=== PATIENT | female | born 1970 | race African-American/Black ===

== ENCOUNTER 2016-06-23 05:11 | Day surgery (SDC) | payer OTHER ==
[2016-06-17 11:01] VITALS: BMI 27.8
[2016-06-23] MEDS ORDERED: VASOPRESSIN 20 UNITS/ML VIAL IV ONE (10:03)
[2016-06-23] MEDS ORDERED: PROPOFOL 20 ML ONE (10:53)
[2016-06-23] MEDS ORDERED: ROCURONIUM BROMIDE 50 MG/5 ML VIAL ONE (10:53)
[2016-06-23] MEDS ORDERED: MIDAZOLAM HCL 2 MG/2 ML SINGLE DOSE VIAL ONE ×2 (10:53)
[2016-06-23] MEDS ORDERED: ceFAZolin SODIUM 1 GM VIAL IVPB ONE (11:10)
[2016-06-23] MEDS ORDERED: METRONIDAZOLE 500 MG PREMIXED 500 MG/100 ML MG IVPB ONE (11:10)
[2016-06-23] MEDS ORDERED: ceFAZolin SODIUM 1 GM VIAL ONE (11:14)
[2016-06-23] MEDS ORDERED: METRONIDAZOLE 500 MG PREMIXED 100 ML IVPB ONE (11:15)
[2016-06-23] MEDS ORDERED: DEXAMETHASONE SOD PHOSPHATE 4 MG/1 ML VIAL ONE (11:26)
[2016-06-23] MEDS ORDERED: KETOROLAC TROMETHAMINE 30 MG/1 ML VIAL ONE (13:38)
[2016-06-23] MEDS ORDERED: ONDANSETRON 4 MG/2 ML VIAL IVPUSH PRN (14:16)
[2016-06-23] MEDS ORDERED: oxyCODONE HCL 5 MG TABLET PO PRN ×2 (14:16→14:26)
--- NOTE | 2016-06-23 14:19 | HP ---
History & Physical Update - History History: No Change - Physical Physical: No Change - Assessment Assessment: No Change - Plan Plan: No Change
--- NOTE | 2016-06-23 14:25 | OP ---
Operative Note - Note: Operative Date: 06/23/16 Pre-Operative Diagnosis: 46 yo P0 with Chronic pelvic pain, multifibroid uterus , s/p Uterine artery embolisation Operation: Laparascopicaly assysted vaginal hysterectomy, bilateral salpingectomy Findings: 12 week size multifibroid uterus, likely adenomyosis, normal bilateral tubes and ovaries, normal abdominal anatomy, bilateral ureters visualized Post-Operative Diagnosis: Other Surgeon: Salina Siddiqui Neighborhood Coordinator: Fox Pascual Anesthesiologist/CAN COVERER: Shaye Walters Anesthesia: General Specimens Removed: Uterus with cervix, bilateral tubes Estimated Blood Loss (mls): 50 Drains, Volume Out (mls): 200 Fluid Volume Replaced (mls): 1,200 Operative Report Dictated: Yes
[2016-06-23] MEDS ORDERED: IBUPROFEN 600 MG TABLET (FP) PO PRN (14:26)
[2016-06-23] MEDS ORDERED: ONDANSETRON 4 MG/2 ML VIAL IVPB PRN (14:26)
[2016-06-23] MEDS ORDERED: IBUPROFEN 800 MG/8 ML IJ IVPB PRN (14:26)
[2016-06-23] MEDS ORDERED: LACTATED RINGERS SOLUTION 1,000 ML IV SCH (14:30)
[2016-06-23] MEDS ORDERED: ELECTROLYTE-148 SOLN 1,000 ML IV SCH (14:30)
[2016-06-23 17:15] VITALS: TEMP 98.5
[2016-06-23] MEDS ORDERED: oxyCODONE HCL 5 MG TABLET ONE (17:50)
[2016-06-23 19:05] VITALS: BP 125/69; PULSE 84
--- NOTE | 2016-06-24 00:54 | OP ---
DATE OF OPERATION: 06/23/2016 PREOPERATIVE DIAGNOSIS: A 46-year-old para 0 with chronic pelvic pain, multi-fibroid uterus, status post uterine artery embolization. OPERATION: Laparoscopically assisted vaginal hysterectomy, bilateral salpingectomy. FINDINGS: A 12-week size multi-fibroid uterus likely adenomyosis, normal bilateral tubes and ovaries, normal abdominal anatomy, bilateral ureters visualized. POSTOPERATIVE DIAGNOSIS: A 12-week size multi-fibroid uterus likely adenomyosis, normal bilateral tubes and ovaries, normal abdominal anatomy, bilateral ureters visualized. SURGEON: Salina Siddiqui MD MONORAIL HOOKER: Fox Pascual MD ANESTHESIOLOGIST: Shaye Walters MD ANESTHESIA: General endotracheal intubation. SPECIMENS REMOVED: Uterus with cervix and bilateral tubes. ESTIMATED BLOOD LOSS: 50 mL. URINE OUTPUT: 200 mL. FLUID VOLUME REPLACED: 1200 mL. DESCRIPTION OF OPERATIVE PROCEDURE: The patient was explained the risks, benefits, and alternatives of the procedure and signed an informed consent with witness present. The patient was taken to the operating room where the patient's medical record number was confirmed during preoperative timeout. After establishment of adequate anesthesia, sequential compression devices were placed and antibiotic prophylaxis was given. Patient was placed in the dorsal lithotomy position using Radu stirrups. Her arms were protected with foam and tucked into the crate. Patient was prepped and draped in the usual sterile fashion. Pelvic examination conducted and revealed above findings. Multi-fibroid uterus was poor descensus. The decision was made to proceed with laparoscopically assisted vaginal hysterectomy. The umbilicus was incised with 15-blade. The 5-mm Optiview trocar with camera was placed through the umbilicus and good visualization of the underlying tissues. The proper entry was confirmed by low intraabdominal pressure. The abdomen was subsequently insufflated to 16 mmHg and all intraabdominal contents were visualized well. Subsequently, 2 additional trocars were placed; 5-mm trocar into the right lower quadrant as well as a 5-mm trocar into the left lower quadrant. Also, the uterine manipulator was placed through the cervical os. Hulka was used to allow for uterine manipulation. The 5-mm 0-degree scope was utilized to observe all intraabdominal contents. The uterus was found to be multi-fibroid, but allowing good access to all vital blood vessels. The round ligament on the right side was cauterized with 5-mm LigaSure and the bladder flap was created from right round ligament onto the left round ligament and left round ligament was severed using LigaSure device in a similar fashion. Subsequently, attention was paid to the left adnexa and uteroovarian ligament was severed with excellent hemostasis using the LigaSure device. Subsequently, the left fallopian tube was excised along the mesosalpinx and severed off of the infundibulopelvic using the LigaSure device. The uterine artery on the left side was skeletonized and severed, cauterized via the LigaSure device with excellent hemostasis. Subsequently, the right uteroovarian ligament was cauterized and dissected off of the uterine fundus using LigaSure device. Right fallopian tube was dissected off the infundibulopelvic ligament and subsequently off of the mesosalpinx. Both tubes were positioned into the anterior cul-de-sac. Both ovaries bilaterally were found to be healthy and vital after the dissection of the bilateral fallopian tubes. Subsequently the right uterine artery was skeletonized and dissected using the LigaSure device. One more downward dissection was placed with the LigaSure device bilaterally to dissect the cardinal ligament further and also uterosacral ligaments were dissected using the LigaSure device. Subsequently, attention was brought to the perineum. The abdominal gas was released. Abdomen was covered with sterile towels. Surgery proceeded vaginally. Two sweetheart tenaculums were placed at 3 o'clock and 9 o'clock on the cervical os with good visualization of bowel and bladder. Then, 10 mL of dilution solution of vasopressin was injected circumferentially into the cervicovaginal junction. The cervicovaginal junction subsequently was incised with Bovie cautery and sharp dissection was used to enter anterior and posterior cul-de-sacs with good visualization of neighboring bladder and bowel and good protection and retraction of such. Subsequently, the impact LigaSure device was used to dissect off the cardinal ligaments bilaterally and uterus was exteriorized and delivered and subsequently sent to pathology. The vaginal cuff was sutured from 12 o'clock to 6 o'clock with [id number]-[id number] 0 Vicryl sutures. Multiple sutures were placed. Excellent hemostasis was achieved. The sponge stick was placed into the vagina, which was found to have appropriate length. Subsequently, the gloves were changed and attention was brought again to the abdomen. The abdominal contents were visualized again. The abdomen was insufflated with CO2 gas to 16 mmHg. The excellent hemostasis was found intra-abdominally. Abdomen was irrigated with normal saline. The graspers were used to remove the bilateral tubes through the left lateral port twice and bilateral tubes were sent to pathology. After ensuring excellent hemostasis after irrigation, the CO2 gas was allowed to escape the abdomen through the ports. All 3 ports were removed under direct visualization. All of the ports were only 5 mm and only skin was repaired with 4-0 Monocryl. Bandages were placed on each port. All instrument and sponge counts were correct x2. Patient was repositioned into the supine position. All instruments were removed. The patient was extubated and brought to the recovery room in stable condition. Claus [id number]
--- NOTE | 2016-06-25 17:37 | PATH ---
Surgical Pathology Report Patient Name: ALEJANDRO PEREZ [facility]. Rec. #: [id number] /Age/Gender: 1970 (Age: 46) / F Account: [id number] Location: [facility] SURGICAL Taken: 06/23/2016 Received: 06/24/2016 Reported: 06/25/2016 Physicians: Salina Siddiqui M.D. Specimen(s) Received UTERUS, CERVIX, WITH OR W/O TUBES AND OVARIES, (WITH FIBROIDS & BILATERAL TUBES Clinical History Leiomyoma of uterus Final Diagnosis UTERUS, CERVIX, FIBROIDS BILATERAL FALLOPIAN TUBES, VAGINAL HYSTERECTOMY: CERVIX: MILD CHRONIC CERVICITIS. ENDOMETRIUM: PREDOMINANTLY SECRETORY. MYOMETRIUM: FOCAL ADENOMYOSIS, LEIOMYOMATA WITH DEGENERATIVE CHANGES (LARGEST 3.7 CM); BLOOD VESSELS WITH AMORPHOUS MATERIAL SUGGESTIVE OF PRIOR UTERINE ARTERY EMBOLIZATION. UTERINE SEROSA: WITH NO SIGNIFICANT PATHOLOGIC CHANGES. FALLOPIAN TUBES: UNILATERAL PARATUBAL CYST. Electronically Signed Ricky Vernon M.D. Gross Description Received in formalin, labeled "uterus, cervix, fibroids and bilateral fallopian tubes" is a 171 g uterus with an attached cervix and no attached adnexa. The bilateral, undesignated fallopian tubes are separately received within the same container. The specimen measures 10.8 cm from superior to inferior, 6.5 cm from left to right and 5.5 cm from anterior to posterior. The serosa is kern-jim with multiple bulging subserosal nodules. The cervix measures 3 cm in length and averages 2.2 cm in diameter. The ectocervix is kern, smooth and glistening. The endocervix is unremarkable. The endometrial cavity is distorted by a large bulging intramural nodule. The cavity measures 6 cm in length and 3.3 cm from cornu to cornu. The endometrium is hyperemic and measures up to 0.3 cm in thickness. The myometrium displays numerous intramural, calcified and focally softened nodules measuring up to 3.7 cm in greatest dimension. The myometrium also displays multifocal areas of a clear gel-like substance. The remaining myometrium is kern-pink and averages 2.5 cm in thickness. The fallopian tubes are fimbriated and average 4 cm in length. The outer surfaces are kern-santana and smooth. Sectioning reveals unremarkable lumens. Computer Installation Engineer sections are submitted in 16 cassettes as follows: 1-anterior cervix; 2-posterior cervix; 4-5-nyppbllm endomyometrium; 7-9-lzuwplnfr endomyometrium; 7-4-qbofwievsa nodules; 78-04-vcasaubylo nodules; 13-arbitrarily designated fallopian tube 1 fimbria; 14-cross sections of fallopian tube 1; 15-arbitrarily designated fallopian tube 2 fimbria; cross sections of fallopian tube 2. 06/24/201606/24/2016
== END 2016-06-23 19:05 | disposition home or self-care (01) ==
LOC: JASU-SURG 05:11 → EDSTATUS 10:00 → JASU-SURG 19:05
PROVIDERS: ATTEND Obstetrics & Gynecology
PROC: 0UTC7ZZ Resection of Cervix, Via Natural or Artificial Opening (ICD-10-PCS; 2016-06-23)
PROC: 0UT2FZZ Resection of Bilateral Ovaries, Via Natural or Artificial Opening With Percutaneous Endoscopic Assistance (ICD-10-PCS; 2016-06-23)
PROC: 0UT7FZZ Resection of Bilateral Fallopian Tubes, Via Natural or Artificial Opening With Percutaneous Endoscopic Assistance (ICD-10-PCS; 2016-06-23)
PROC: 0UT9FZZ Resection of Uterus, Via Natural or Artificial Opening With Percutaneous Endoscopic Assistance (ICD-10-PCS; principal; 2016-06-23 10:00)
DX: N80.0 Endometriosis of uterus (principal); N83.8 Other noninflammatory disorders of ovary, fallopian tube and broad ligament; N72 Inflammatory disease of cervix uteri
CPT/HCPCS: 84703; 88307-TC; 94760